=== PATIENT | female | born 1945 | race Caucasian/White ===

== ENCOUNTER 2020-04-24 15:30 | Emergency (ER) | payer MEDICARE, MEDICAID ==
[~2020-04-24] VITALS: Ht 162.6 cm; Wt 81.6 kg
--- NOTE | 2020-04-24 15:30 | NUR ---
PT AMBER ALS TO ER BED 05. RN EVALUATING PATIENT AT BEDSIDE.
--- NOTE | 2020-04-24 15:37 | NUR ---
DR. OHARA EVALUATING PATIENT
--- NOTE | 2020-04-24 15:40 | NUR ---
AMBER PIÑA FROM HOME , FAMILY CALLED 911 PT STARTED TO BE AGITATED AND TALKING NONSTOP , AFIBRILE , SCE , CBS BLF, FLAT SOFT NABS NONTENDER ABDOMEN. PMHS BIPOLAR DISORDER , DM ,HTN
[2020-04-24] MEDS ORDERED: HALOPERIDOL IM 5 MG/ML VIAL IM ONE (15:45)
[2020-04-24 16:05] VITALS: BP 140/123
--- NOTE | 2020-04-24 16:11 | NUR ---
adminstered 0.5 ml haldol wasted 0.5ml rn kori informed and aware.
[2020-04-24] MEDS ORDERED: LORazepam 2 MG/ML VIAL IM ONE (16:35)
--- NOTE | 2020-04-24 16:50 | NUR ---
emt at bedside doin ekg , relative at bedside.
--- NOTE | 2020-04-24 17:13 | NUR ---
XRAY AT BEDSIDE
[2020-04-24 17:21] LABS: BASOPHILS # (AUTO) 0.1 K/uL (0.00-0.22); BASOPHILS % (AUTO) 0.7 % (0.0-2.0); EOSINOPHILS # (AUTO) 0.1 K/uL (0-0.4); EOSINOPHILS % (AUTO) 1.1 % (0.0-4.0); HEMATOCRIT 34.9 % (36-48); HEMOGLOBIN 11.4 g/dL (12.0-16.0); LYMPHOCYTES # (AUTO) 0.8 K/uL (2.5-16.5); LYMPHOCYTES % (AUTO) 8.3 % (20.5-51.1); MEAN CORPUSCULAR HEMOGLOBIN 31 pg (27-31); MEAN CORPUSCULAR HGB CONC 33 g/dL (33-37); MEAN CORPUSCULAR VOLUME 95.2 fL (80-94); MONOCYTES # (AUTO) 0.6 K/uL (0.8-1.0); NEUTROPHILS # (AUTO) 7.8 K/uL (1.8-7.7); NEUTROPHILS % (AUTO) 83.9 % (42.2-75.2); PLATELET COUNT (AUTO) 241 K/uL (140-450); RED BLOOD CELL COUNT(AUTO) 3.67 MIL/uL (4.20-5.40); RED CELL DISTRIBUTION WIDTH 14.9 % (11.6-13.7); WHITE BLOOD COUNT (AUTO) 9.3 K/uL (4.8-10.8)
[2020-04-24 17:38] LABS: ALBUMIN 3.7 g/dL (3.4-5.0); ANION GAP 17.2 (8-16); ASPARTATE AMINOTRANSFERASE 21 U/L (15-37); CHLORIDE 104 mmol/L (98-107); CREATININE 0.9 mg/dL (0.6-1.3); GLUCOSE 114 mg/dL (74-106); POTASSIUM 4.2 mmol/L (3.5-5.1); SODIUM SERUM 139 mmol/L (136-145); TOTAL BILIRUBIN 0.4 mg/dL (0.0-1.0); UREA NITROGEN, BLOOD 17 mg/dL (7-18)
[2020-04-24 17:40] LABS: ACETAMINOPHEN < 0.5 ug/ml (10-30); SALICYLATE < 2.8 mg/dL (2.8-20.0)
[2020-04-24 18:05] LABS: CKMB RELATIVE INDEX 0.5 (0.0-2.5); CREATINE KINASE MB 2.3 ng/mL (0-3.6)
[2020-04-24] MEDS ORDERED: NACL 0.9% 1,000 ML IV ONE (18:05)
--- NOTE | 2020-04-24 18:09 | NUR ---
dr bobby at bedside reevaluating pt.
--- NOTE | 2020-04-24 18:24 | NUR ---
pt talking in bed sister at bedside , side rails up x2 and lock. v/s stable .
--- NOTE | 2020-04-24 19:10 | NUR ---
Patient discharged with v/s stable. Written and verbal after care instructions given and explained to sister. Patient sister verbalized understanding. Wheel Chair Assisted with to home. All questions addressed prior to discharge. Advised to follow up with PMD.
--- NOTE | 2020-04-24 19:14 | NUR ---
dale sheikh discharge pt.
[2020-04-24 19:15] VITALS: BP 114/58
== END 2020-04-24 19:10 | disposition home or self-care (01) ==
LOC: MED 15:30
DX: F41.9 Anxiety disorder, unspecified (principal); F31.9 Bipolar disorder, unspecified; E11.9 Type 2 diabetes mellitus without complications; I10 Essential (primary) hypertension
CPT/HCPCS: 36415; 71045; 80053; 82550; 82553; 84484; 85025; 93005; 96372; 99285; G0480; G0482; J1630; J2060; J7030; Q0092